=== PATIENT | male | born 1970 | race Caucasian/White ===

== ENCOUNTER 2018-02-11 19:16 | Emergency (ER) | payer MEDICAID, OTHER ==
[~2018-02-11] VITALS: Ht 185.4 cm; Wt 100.0 kg
[~2018-02-11 19:16] MED LIST: METF500T4 PO; SERT50TA12 PO
[2018-02-11 19:32] LABS: GLUCOSE,POINT OF CARE 453 MG/DL (70-110)
[2018-02-11] MEDS ORDERED: KETOROLAC TROMETHAMINE 30 MG/ML VIAL IM ONE (21:00)
[2018-02-11] MEDS ORDERED: INSULIN REGULAR, HUMAN 100 UNITS/ML SQ ONE (21:15)
[2018-02-11 21:17] LABS: GLUCOSE,POINT OF CARE 490 MG/DL (70-110)
[2018-02-11 22:28] LABS: GLUCOSE,POINT OF CARE 434 MG/DL (70-110)
[2018-02-11 22:29] VITALS: BP 141/83
== END 2018-02-11 22:33 | disposition home or self-care (01) ==
LOC: EMS 19:18
DX: M54.5 Low back pain (principal); M62.838 Other muscle spasm; E11.9 Type 2 diabetes mellitus without complications; E78.00 Pure hypercholesterolemia, unspecified; I10 Essential (primary) hypertension; F17.210 Nicotine dependence, cigarettes, uncomplicated
CPT/HCPCS: 82962; 96372; 99284; J1815; J1885